=== PATIENT | male | born 1960 | race Caucasian/White ===

== ENCOUNTER → 2019-08-07 | Outpatient (CLI) | payer OTHER | LOC: LB.DI 10:21 | PROVIDERS: ATTEND Family Medicine | DX: I71.2 Thoracic aortic aneurysm, without rupture (principal) | CPT/HCPCS: 93306 ==

== ENCOUNTER 2022-04-02 11:35 | Day surgery (SDC) | payer BC ==
[~2022-04-02 11:35] MED LIST: Metoclopramide 10 MG/2 ML SDV IV PRN
[2022-04-02] MEDS: Sodium Chloride 0.9% 1,000 ML IV SCH (12:24)
[2022-04-02] MEDS ORDERED: Glycopyrrolate 0.2 MG/ML 2 ML SDV ONE (13:50)
[2022-04-02] MEDS ORDERED: Propofol 1,000 MG/100 ML SDV ONE (13:50)
== END 2022-04-02 15:05 | disposition home or self-care (01) ==
LOC: LB.SDS 11:35
PROVIDERS: ATTEND Surgery
DX: K57.30 Diverticulosis of large intestine without perforation or abscess without bleeding (principal); I10 Essential (primary) hypertension; E78.00 Pure hypercholesterolemia, unspecified; J43.9 Emphysema, unspecified; Z87.891 Personal history of nicotine dependence
CPT/HCPCS: 45378; J2704; J3490; J7030

== ENCOUNTER 2022-11-07 10:01 | Emergency (ER) | payer BC ==
[2022-11-07] MEDS ORDERED: Lidocaine 1% with EPINEPHrine 1:100,000 50 ML MDV INFILT ONE (10:30)
[2022-11-07] MEDS ORDERED: Diphtheria,Pertussis(Acell),Tetanus Vaccine 0.5 ML Syringe IM ONE (10:39)
[2022-11-07] MEDS ORDERED: Cephalexin 500 MG Cap ONE (11:00)
== END 2022-11-07 11:15 | disposition home or self-care (01) ==
LOC: LB.ED 10:01
DX: S41.111A Laceration without foreign body of right upper arm, initial encounter (principal); E78.00 Pure hypercholesterolemia, unspecified; I10 Essential (primary) hypertension; Z23 Encounter for immunization; Z79.899 Other long term (current) drug therapy; Y93.01 Activity, walking, marching and hiking
CPT/HCPCS: 12002; 90471; 90715; 99282; A9270